=== PATIENT | male | born 1950 | race Caucasian/White ===

== ENCOUNTER → 2024-07-29 11:53 | Outpatient (CLI) | payer OTHER, SELFPAY ==
--- NOTE | 2024-07-29 11:56 | EKG_ITS ---
[facility] [address] [place] [address] Test Date: 2024-07-29 Pat Name: Daniel Santo Department: Room: Gender: Male [employer]: : 1950 Requested By: Order Number: [id number] Reading MD: Dre Blackwell MD Measurements Intervals [place] Rate: 44 P: 17 IN: 142 QRS: -29 QRSD: 96 T: 3 QT: 438 QTc: 374 Interpretive Statements Marked sinus bradycardia Electronically Signed On 07-30-2024 7:46:07 PST by Der Blackwell MD
== END ==
PROVIDERS: Referring Provider Chiropractor; Visit Provider Chiropractor
DX: R00.0 Tachycardia, unspecified (principal)
CPT/HCPCS: 93005; 93010

== ENCOUNTER → 2024-08-29 11:28 | Outpatient (CLI) | payer OTHER, SELFPAY ==
--- NOTE | 2024-08-29 11:31 | DI.ECHO.S_ITS ---
[facility] : : [address] : [place] [address] : : [id number] : : Phone: [phone] Echocardiogram Report + + :Name: JAMI NATION Study Date: 08/29/2024 Height: 67 in : :Hospital ReadingLocation: Weight: 180 lb : : Gender: Male BSA: 1.9 m2 : :: 1950 Age: 74 yrs BP: 164/91 mmHg: :Reason For Study: TACHYCARDIA : :Ordering Physician: ZENON, : :PLA Performed By: Piotr Gamboa : :Referring: PAL YARBROUGH : + + Interpretation Summary 1) Normal left ventricular thickness, size, wall motion, and systolic function (EF 55-60%). 2) Normal right ventricular size and function. 3) No significant valvular abnormalities. 4) Compared to the echo done 06/12/2024, no significant change. Procedure: A two-dimensional transthoracic echocardiogram with color flow and Doppler was performed. The study quality was technically good. Comparison is made with the echocardiogram of 06/12/2024. The patient was in a bradycardic rhythm during the exam. Left Ventricle: The left ventricle is normal in size. There is normal left ventricular wall thickness. There is no ventricular septal defect visualized. The ejection fraction is estimated to be 55-60%. There are no focal wall motion abnormalities. Diastolic parameters suggest a relaxation abnormality of the left ventricle, consistent with probable normal filling pressures. Right Ventricle: The right ventricle is normal in size and function. Atria: The left atrium is moderately dilated. The right atrium is mildly dilated. There is no Doppler evidence for an interatrial shunt. Mitral Valve: The mitral valve leaflets appear normal. There is no evidence of stenosis, fluttering, or prolapse. There is trace mitral regurgitation. Aortic Valve: The aortic valve is trileaflet. The aortic valve opens well. There is no aortic valve stenosis. No aortic regurgitation is present. Tricuspid Valve: The tricuspid valve leaflets are thin and pliable. There is trace tricuspid regurgitation. The right ventricular systolic pressure is estimated to be at least 31 mmHg based on an estimated right atrial pressure of 3 mm Hg. Pulmonic Valve: The pulmonic valve leaflets are thin and pliable; valve motion is normal. There is trace pulmonic regurgitation. Great Vessels: The aortic root is normal size. The ascending aorta is at the upper limits of normal in size. The pulmonary artery is normal size. The IVC is of normal diameter and collapses greater than 50% with a sniff. This suggests a low right atrial pressure of 3 mm Hg. Pericardium/ Pleura There is no pericardial effusion. There is no pleural effusion. MMode/2D Measurements & Calculations LVIDd: 5.0 cm LVOT diam: 1.9 cm LVIDs: 3.4 cm Ao root diam: 3.3 cm FS: 31.9 % asc Aorta Diam: 3.7 cm EPSS: 0.92 cm Ao Arch Diam (Prox Trans): 2.6 cm IVSd: 0.94 cm LVPWd: 0.85 cm LV ferrell. diameter/BSA (cm/m^2): 2.6 LV sys. diameter/BSA (cm/m^2): 1.8 LA A2 area: 21.2 cm2 RA long axis: 5.7 cm LA A4 area: 22.1 cm2 RA area: 17.8 cm2 LA length (vol): 5.8 cm RA vol: 47.1 ml LA vol: 68.6 ml RA : 24.3 ml/m2 LA vol index: 35.5 ml/m2 IVC diam: 1.8 cm RVD1 (basal): 3.5 cm RVD2 (mid): 2.7 cm TAPSE: 2.8 cm Doppler Measurements & Calculations Ao V2 max: 157.4 cm/sec LVOT Max Yvan: 105.7 cm/sec Ao V2 mean: 111.1 cm/sec LV V1 max P.5 mmHg Ao max P.9 mmHg LV V1 VTI: 28.5 cm Ao mean P.4 mmHg LAURE(I,D): 2.1 cm2 Ao V2 VTI: 40.0 cm LAURE(V,D): 2.0 cm2 sev ratio: 0.71 LAURE indexed to BSA (cm^2/m^2): 1.1 MV E max yvan: 75.3 cm/sec TR max yvan: 266.6 cm/sec MV A max yvan: 83.8 cm/sec TR max P.4 mmHg MV E/A: 0.90 PA V2 max: 78.6 cm/sec Med Peak E' Yvan: 7.1 cm/sec PA V2 mean: 54.6 cm/sec E/E' med: 10.5 PA mean P.3 mmHg Lat Peak E' Yvan: 9.3 cm/sec PA pr(Accel): 58.4 mmHg E/E' lat: 8.1 E/e' average: 9.3 MV dec time: 0.24 sec SV(LVOT): 84.0 ml Reading Physician:04:07 PM
== END ==
PROVIDERS: PCP Registered Nurse; Referring Provider Chiropractor; Visit Provider Chiropractor
DX: R00.0 Tachycardia, unspecified (principal)
CPT/HCPCS: 93306